=== PATIENT | male | born 1955 | race Caucasian/White ===

== ENCOUNTER → 2020-03-24 | Outpatient (CLI) | payer OTHER ==
[~2020-03-24] MED LIST: CIALIS5 MG PO; FLEXERIL PO; FLOMAX0.4 MG PO; IBUPROFEN 800800 M1 PO; METFORMIN HCL500 MG PO; NOVOLOG100 UNIT/1 SQ; PERCOCET PO; PRAVASTATIN SOD10 MG PO; ROBAXIN 750 MG750 M1 PO; TERAZOSIN HCL10 MG PO; TRAMADOL 50 MG50 MG PO; ZOLPIDEM TARTRA10 MG PO
== END ==
LOC: SJCVC 13:51
PROVIDERS: ATTEND Internal Medicine
DX: R94.31 Abnormal electrocardiogram [ECG] [EKG] (principal); E78.5 Hyperlipidemia, unspecified; E11.9 Type 2 diabetes mellitus without complications

== ENCOUNTER → 2020-04-06 | Outpatient (CLI) | payer OTHER | LOC: SJCVCIMAG 07:19 | PROVIDERS: ATTEND Internal Medicine | DX: R94.31 Abnormal electrocardiogram [ECG] [EKG] (principal); E11.9 Type 2 diabetes mellitus without complications; E78.5 Hyperlipidemia, unspecified; Z79.4 Long term (current) use of insulin ==